=== PATIENT | female | born 1990 ===

== ENCOUNTER 2017-06-15 16:45 | Emergency (ER) | payer MEDICAID, OTHER ==
[2017-06-15 16:57] VITALS: TEMP 98.7
--- NOTE | 2017-06-15 18:36 | C.PDOC ---
History Of Present Illness 27-year-old female, presents to the emergency department with complaints of an itchy rash to bilateral hands and lips for the past two days. Denies fever, sick contacts with similar, new soap/shampoo or new foods. No other complaints at this time. Time Seen by Provider: 06/15/17 17:02 Chief Complaint (Nursing): Abnormal Skin Integrity History Per: Patient History/Exam Limitations: no limitations Current Symptoms Are (Timing): Still Present Quality Of Symptoms: Itching Past Medical History Reviewed: Historical Data, Nursing Documentation, Vital Signs Vital Signs: Last Vital Signs Temp 98.7 F 06/15/17 16:56 Pulse 75 06/15/17 18:58 Resp 16 06/15/17 18:58 BP 125/68 06/15/17 18:58 Pulse Ox 100 06/15/17 19:22 Family History: States: No Known Family Hx - Social History Hx Alcohol Use: No Hx Substance Use: No - Immunization History Hx Tetanus Toxoid Vaccination: No Hx Influenza Vaccination: No Hx Pneumococcal Vaccination: No Review Of Systems Except As Marked, All Systems Reviewed And Found Negative. Constitutional: Negative for: Fever Respiratory: Negative for: Shortness of Breath Gastrointestinal: Negative for: Vomiting Skin: Positive for: Rash Physical Exam - Physical Exam Skin: Warm, Dry, Rash (scattered papular rash to lips and bilateral hands, with excoriations) Head: Atraumatic, Normacephalic Eye(s): bilateral: PERRL, EOMI, right: Normal Inspection, left: Other (Left, conjunctival injection, mild. No foreign body, no eye lid crusting) Nose: Normal Oral Mucosa: Moist Lips: Other (rash) Throat: No Erythema, No Exudate, No Drooling, No Mass, Other (No lesions inside oropharynx or mouth) Neck: Normal ROM, Supple Cardiovascular: Rhythm Regular, No Friction Rub, No Murmur Respiratory: Normal Breath Sounds, No Accessory Muscle Use Gastrointestinal/Abdominal: Soft, No Tenderness Back: Normal Inspection, No CVA Tenderness Extremity: Normal ROM, No Swelling Neurological/Psych: Oriented x3, Normal Speech, Normal Motor ED Course And Treatment O2 Sat by Pulse Oximetry: 100 (on RA) Pulse Ox Interpretation: Normal Medical Decision Making Medical Decision Making: The patient was evaluated by Dr. Mann who agrees that this case looks like contact dermatitis. Patient was instructed to follow up [facility] Disposition - Disposition Referrals: César Trujillo MD [Non-Staff] - Disposition: HOME/ ROUTINE Disposition Time: 18:36 Condition: GOOD Additional Instructions: Follow up with the [facility]. Return if worsened. Prescriptions: DiphenhydrAMINE [Benadryl] 25 mg PO QID #28 cap Hydrocortisone 1% Oint [Cortizone 1% Oint] 1 appl TP BID #2 tube predniSONE [Prednisone] 10 mg PO BID #10 tab Instructions: Contact Dermatitis (ED) Forms: [employer] (Turkish) - Clinical Impression Clinical Impression: Contact dermatitis - Scribe Statement The provider has reviewed the documentation as recorded by the Scribe (Selam Puente) All medical record entries made by the Scribe were at my direction and personally dictated by me. I have reviewed the chart and agree that the record accurately reflects my personal performance of the history, physical exam, medical decision making, and the department course for this patient. I have also personally directed, reviewed, and agree with the discharge instructions and disposition.
[2017-06-15 18:59] VITALS: BP 125/68; PULSE 75; RESP 16
[2017-06-15 19:04] VITALS: O2SAT 100
== END 2017-06-15 18:58 | disposition home or self-care (01) ==
LOC: C.ER 16:45
DX: L25.9 Unspecified contact dermatitis, unspecified cause (principal)